=== PATIENT | female | born 1995 | race Caucasian/White ===

== ENCOUNTER → 2021-07-11 20:30 | Observation (INO) ==
[2021-07-11 14:03] LABS: Basophils % 0.4 %; Eosinophils # 0.1 K/mcL (0.0-0.6); Eosinophils % 1.5 %; Hemoglobin 13.2 g/dL (11.5-15.4); Immature Granulocytes % 0.3 % (0-4); Lymphocytes # 3.1 K/mcL (0.6-4.6); Lymphocytes % 39.4 %; Mean Corpuscular HGB Conc 33.8 g/dL (31.6-35.5); Mean Corpuscular Hemoglobin 33.7 pg (28.0-33.3); Mean Corpuscular Volume 99.5 fL (83.0-100.0); Monocytes # 0.7 K/mcL (0.0-1.3); Monocytes % 9.1 %; Neutrophils # 3.9 K/mcL (1.6-8.9); Platelet Count 202 K/mcL (140-400); Red Blood Count 3.92 M/mcL (3.82-4.97); Red Cell Distribution Width 11.9 % (11.5-14.5); Segmented Neutrophils % 49.3 %; White Blood Count 7.9 K/mcL (4.3-11.1)
[2021-07-11 18:39] VITALS: TEMP 97.5
[2021-07-11 20:18] VITALS: BP 119/79; PULSE 54; O2SAT 100
[~2021-07-11 20:30] MED LIST: *HR* FentaNYL (PF) 100 MCG/2 ML VIAL ONE; *HR* HYDROMORPHONE 2 MG/ML VIAL ONE; *HR* HYDROcodone/Acet 5/325 mg TABLET PO PRN; *HR* HYDROmorphone (PF) 1 MG/ML SYRINGE IVP PRN; *HR* HYDROmorphone 2 MG TABLET PO PRN; *HR* Labetalol 20 MG/4 ML SYRINGE IVP PRN; *HR* Midazolam HCl 2 MG/2 ML VIAL ONE; *HR* OxyCODONE Immed Rel 5 MG TABLET PO PRN; *HR* Rocuronium Bromide 50 MG/5 ML VIAL ONE; Acetaminophen IV 1,000 MG/100 ML BAG IVPB ONE; Bupivacaine/EPI 1:200k 0.25% 50 ML VIAL ONE; Clindamycin 900 MG/50 ML 900 MG/50 ML IV.SOLN IVPB ONE; Famotidine 20 MG/2 ML VIAL ONE; Ketorolac 30 MG/ML VIAL ONE; Promethazine 6.25 MG in Water for inj. (sterile) 20 ML IVPB PRN; Ringers Solution, Lactated 1,000 ML IVC SCH; Sugammadex Sodium 200 MG/2 ML VIAL IV ONE
== END | disposition home or self-care (01) ==
LOC: 1NENUPED
PROVIDERS: ADMIT Obstetrics & Gynecology; ATTEND Obstetrics & Gynecology